=== PATIENT | male | born 1990 | race African-American/Black ===

== ENCOUNTER 2020-08-04 08:57 | Outpatient (REF) | payer OTHER, SELFPAY | END 2020-08-04 08:58 | disposition home or self-care (01) | LOC: HO.LAB 08:57 | PROVIDERS: Visit Provider Internal Medicine | DX: Z20.828 Contact with and (suspected) exposure to other viral communicable diseases (principal) | CPT/HCPCS: 36415; 87635 ==

== ENCOUNTER 2020-09-12 07:35 | Outpatient (REF) | payer OTHER, SELFPAY | END 2020-09-12 07:36 | disposition home or self-care (01) | LOC: HO.LAB 07:35 | PROVIDERS: Visit Provider Internal Medicine | DX: Z20.828 Contact with and (suspected) exposure to other viral communicable diseases (principal) | CPT/HCPCS: C9803; U0003 ==